=== PATIENT | male | born 1955 | race American Indian/Alaskan Native ===

== ENCOUNTER 2016-11-29 12:05 | Emergency (ER) | payer OTHER ==
[2016-11-29 12:41] VITALS: BP 140/96; PULSE 92; RESP 18; TEMP 98; O2SAT 97
[2016-11-29 13:28] LABS: BASO # 0.1 K/uL (0.0-0.2); BASO % 0.4 % (0.0-2.0); EOS % 0.1 % (0.0-4.0); HEMATOCRIT 40.7 % (35.0-51.0); LYMPH # 0.9 K/uL (1.0-4.3); LYMPH % 7.6 % (20.0-40.0); MEAN CELL VOLUME 88.9 fl (80.0-94.0); MEAN CORPUSCULAR HGB CONC 32.6 g/dL (33.0-37.0); MEAN PLATELET VOLUME 7.2 fl (7.2-11.7); MONO # 0.9 K/uL (0.0-0.8); MONO % 6.9 % (0.0-10.0); NEUT # 10.5 K/uL (1.8-7.0); NRBC % 0.7 % (0.0-0.0); RED CELL DISTRIBUTION WIDTH 16.2 % (11.5-14.5); WHITE BLOOD COUNT 12.4 K/uL (4.8-10.8)
[2016-11-29 13:38] LABS: ALB/GLOB RATIO 1.1 (1.0-2.1); ALKALINE PHOSPHATASE 57 U/L (38-126); ALT/SGPT 42 U/L (21-72); AST/SGOT 30 U/L (17-59); BILIRUBIN,TOTAL 0.5 mg/dl (0.2-1.3); BLOOD UREA NITROGEN 23 mg/dl (9-20); CALCIUM 9.3 mg/dL (8.4-10.2); CARBON DIOXIDE 28 mmol/L (22-30); CHLORIDE 99 mmol/L (98-107); GFR AFRICAN-AMERICAN > 60; GLUCOSE,RANDOM 87 mg/dL (75-110); POTASSIUM 4.2 MMOL/L (3.6-5.0); SODIUM 131 mmol/l (132-148); TOTAL PROTEIN 6.5 G/DL (6.3-8.2)
[2016-11-29 13:42] LABS: PLATELET COUNT 94 K/uL (130-400)
--- NOTE | 2016-11-29 14:11 | ED PDOC ---
Lower Extremity Pain/Injury Time Seen by Provider: 11/29/16 12:39 Chief Complaint (Nursing): Lower Extremity Problem/Injury Chief Complaint (Provider): LE Swelling History Per: Patient History/Exam Limitations: no limitations Onset/Duration Of Symptoms: Days (x3) Current Symptoms Are (Timing): Still Present Severity: Moderate Additional Complaint(s): Stanley Flynn is a 61 year old male, with a past medical history inclusive of COPD, type II diabetes and brain/lung cancer (finished round 10 of chemotherapy last week), who presents to the ED on 11/29/16 for the evaluation of moderate, b /l leg swelling that he has experienced x3 days. Associated exertional dyspnea also reported, though patient denies fever, chills or acute chest/back pain. PMD: Karel Boone Past Medical History Reviewed: Historical Data, Nursing Documentation, Vital Signs Vital Signs: Last Vital Signs Temp 98.0 F 11/29/16 12:32 Pulse 92 H 11/29/16 12:32 Resp 18 11/29/16 12:32 BP 140/96 H 11/29/16 12:32 Pulse Ox 97 11/29/16 12:32 - Medical History PMH: COPD, Malignancy (brain, lung) Denies: Chronic Kidney Disease - Surgical History Surgical History: Tonsillectomy - Family History Family History: States: Unknown Family Hx - Immunization History Hx Tetanus Toxoid Vaccination: No Hx Influenza Vaccination: No Hx Pneumococcal Vaccination: No - Home Medications Home Medications: Ambulatory Orders Medication Instructions Recorded Folic Acid 1 mg PO DAILY 10/02/16 Tiotropium Jarratt [Spiriva 1 puff IH DAILY 10/02/16 Respimat] Albuterol 0.083% [Albuterol 0.083% 2.5 mg INH RQ6 PRN #30 neb 10/06/16 Inhal Haley (2.5 mg/3 ml) UD] Dexamethasone [Decadron] 4 mg PO Q12 #30 tab 10/06/16 Nicotine 14 mg/24 hr [Nicoderm CQ] 1 patch TD DAILY #0 patch 10/06/16 Thiamine [Vitamin B1 Tab] 100 mg PO DAILY #30 tab 10/06/16 Tiotropium [Spiriva] 18 mcg INH DAILY #30 cap 10/06/16 - Allergies Allergies/Adverse Reactions: Allergies Allergy/AdvReac Type Severity Reaction Status Date / Time No Known Allergies Allergy Verified 10/02/16 14:35 Review of Systems ROS Statement: Except As Marked, All Systems Reviewed And Found Negative Cardiovascular: Positive for: Edema (b/l LE). Negative for: Chest Pain Respiratory: Positive for: SOB with Exertion Musculoskeletal: Negative for: Back Pain Physical Exam - Reviewed Nursing Documentation Reviewed: Yes Vital Signs Reviewed: Yes - Physical Exam Appears: Positive for: Non-toxic, No Acute Distress Head Exam: Positive for: ATRAUMATIC, NORMOCEPHALIC Skin: Positive for: Normal Color, Warm, Dry Cardiovascular/Chest: Positive for: Regular Rate, Rhythm, Edema (pitting b/l LE) . Negative for: Murmur Respiratory: Positive for: Normal Breath Sounds. Negative for: Rales, Rhonchi, Wheezing, Respiratory Distress Extremity: Positive for: Normal ROM Neurologic/Psych: Positive for: Alert, Oriented. Negative for: Motor/Sensory Deficits - Laboratory Results Result Diagrams: 11/29/16 12:06 11/29/16 12:06 - ECG O2 Sat by Pulse Oximetry: 97 (RA) Pulse Ox Interpretation: Normal - CT Scan/US Duplex LE Vein Bilat Other Rad Studies (CT/US): Read By Radiologist, Radiology Report Reviewed Other Rad Interpretation: No evidence of deep venous thrombosis in the right or left lower extremity. Medical Decision Making Medical Decision Makin:39 Initial Impression: leg swelling, dyspnea on exertion; will r/o CHF, DVT Initial Plan: * Duplex LE Vein Bilat * CXR * Labs * BNP * Reevaluation 14:13 Duplex report reviewed: FINDINGS: COMMON FEMORAL VEIN: Right CFV: Unremarkable. Left CFV: Unremarkable. SUPERFICIAL FEMORAL VEIN: Right SFV: Unremarkable. Left SFV: Unremarkable. POPLITEAL VEIN: Right Popliteal: Unremarkable. Left Popliteal: Unremarkable. POSTERIOR TIBIAL VEIN: Right PTV: Unremarkable. Left PTV: Unremarkable. OTHER FINDINGS: None. IMPRESSION: No evidence of deep venous thrombosis in the right or left lower extremity. . Plan and disposition discussed with Dr. Israel. Dr. Israel discussed with patient. Pt left before getting discharge papers. Scribe Attestation: Documented by Helena Toledo, acting as a scribe for Maren Butt PA-C. Provider Scribe Attestation: All medical record entries made by the Scribe were at my direction and personally dictated by me. I have reviewed the chart and agree that the record accurately reflects my personal performance of the history, physical exam, medical decision making, and the department course for this patient. I have also personally directed, reviewed, and agree with the discharge instructions and disposition. Disposition - Clinical Impression Clinical Impression: Lower leg edema - Patient ED Disposition Is Patient to be Admitted: No Counseled Patient/Family Regarding: Diagnosis, Need For Followup - Disposition Disposition: Routine/Home Disposition Time: 15:48 Condition: STABLE
--- NOTE | 2016-11-29 14:14 | US ---
PROCEDURE: Bilateral lower extremity venous duplex Doppler. HISTORY: lower leg edema, CA COMPARISON: None available. TECHNIQUE: Bilateral common femoral, superficial femoral, popliteal and posterior tibial veins were evaluated. Flow was assessed with color Doppler, compressibility, assessment of phasic flow and augmentation response. FINDINGS: COMMON FEMORAL VEIN: Right CFV: Unremarkable. Left CFV: Unremarkable. SUPERFICIAL FEMORAL VEIN: Right SFV: Unremarkable. Left SFV: Unremarkable. POPLITEAL VEIN: Right Popliteal: Unremarkable. Left Popliteal: Unremarkable. POSTERIOR TIBIAL VEIN: Right PTV: Unremarkable. Left PTV: Unremarkable. OTHER FINDINGS: None. IMPRESSION: No evidence of deep venous thrombosis in the right or left lower extremity. .
[2016-11-29 14:20] LABS: NEUTROPHIL 85 % (42-75); REACTIVE LYMPHOCYTES 2 % (0-0); TOTAL CELLS COUNTED 100
--- NOTE | 2016-11-29 16:31 | RAD ---
HISTORY: lower extremity swelling COMPARISON: 10/06/2016 TECHNIQUE: Chest PA and lateral FINDINGS: LUNGS: Dense opacity in the right upper lobe with decreased aeration compared to prior chest radiograph. Probable combination of right hilar, parahilar mass and upper lobe atelectasis with elevation of minor fissure. . Opacity lateral to right hilum is nonspecific. This may correspond to lymphangitic metastasis seen on CT of 10/02/2016 are may reflect alveolar infiltrate. Several small nodular opacities are seen lateral to the right hilum, not evident on earlier chest radiograph. . PLEURA: No significant pleural effusion identified. No pneumothorax apparent. CARDIOVASCULAR: Normal heart size. Probable right hilar lymphadenopathy. OSSEOUS STRUCTURES: No significant abnormalities. VISUALIZED UPPER ABDOMEN: Normal. OTHER FINDINGS: None. IMPRESSION: Extensive right apical opacity. . Likely upper lobe atelectasis with elevation of minor fissure. 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 Small nodular densities seen in lung lateral to right hilum. Right hilar adenopathy parahilar mass.
== END 2016-11-29 17:01 | disposition home or self-care (01) ==
LOC: H.ER 12:05
DX: R60.0 Localized edema (principal); C80.0 Disseminated malignant neoplasm, unspecified